=== PATIENT | female | born 1995 | race Caucasian/White ===

== ENCOUNTER 2019-01-03 07:17 | Day surgery (SDC) | payer BC, OTHER ==
[~2019-01-03] VITALS: Ht 175.3 cm; Wt 97.5 kg
[~2019-01-03 07:17] MED LIST: AMAN100 PO; BUDE6HFA INH; CRINONE1.125 GM TOP; HYDACE5 PO; RXERYTOPTH OP; TESTOSTERONE SL; Zithromax250 MG PO
[2019-01-03] MEDS ORDERED: ALBU90OI61 INH (07:52)
--- NOTE | 2019-01-03 08:25 | NUR ---
History, Chart, Medications and Allergies reviewed before start of procedure. Patient confirms NPO status and agrees with scheduled surgery. Patient reports completing Chlorhexadine shower X2 prior to admission to hospital. Patient States Post-Procedure ride home has been arranged with her significant other.
--- NOTE | 2019-01-03 10:24 | NUR ---
C/O 4/10 DULL PAIN TO UMBILICUS. STATES SHE DOES NOT NEED PAIN MEDICATION AT THIS TIME. ALSO C/O SORE THROAT. DENIES NAUSEA. ABDOMINAL BINDER PLACED.
--- NOTE | 2019-01-03 11:07 | NUR ---
Discharge instructions reviewed with patient. Patient verbalizes understanding. Copy given to patient to take home.
--- NOTE | 2019-01-03 11:12 | NUR ---
TOLERATED PO WATER AND CRAKCERS WITHOUT C/O.
--- NOTE | 2019-01-03 11:25 | NUR ---
1118- UP TO DRESS. GAIT STEADY. VSS. PATIENT STATES SHE FEELS READY TO GO HOME. 1124- TANSFERED OUT OF DEPARTMENT VIA [facility].
== END 2019-01-03 23:01 | disposition home or self-care (01) ==
LOC: ORSCMMR 07:17 → ORD 07:30 → ORSCMMR 08:45 → ORD 08:45 → ORSCMMR 23:01
PROVIDERS: Surgery
PROC: 0WQF0ZZ Repair Abdominal Wall, Open Approach (ICD-10-PCS; principal; 2019-01-03 08:45)
DX: K42.9 Umbilical hernia without obstruction or gangrene (principal); J45.909 Unspecified asthma, uncomplicated; F41.9 Anxiety disorder, unspecified; Z79.899 Other long term (current) drug therapy; E66.9 Obesity, unspecified; Z68.33 Body mass index [BMI] 33.0-33.9, adult
CPT/HCPCS: J0690; J1100; J2405; J3010; J7120

== ENCOUNTER → 2022-02-16 | Outpatient (CLI) | payer OTHER ==
[~2022-02-16] MED LIST changes: +ALBU90OI61 INH; +IBUP800 PO
[2022-02-17 10:56] LABS: Candida species (DNA Probe) Negative (NEGATIVE); G. vaginalis (DNA Probe) Positive (NEGATIVE); T. vaginalis (DNA Probe) Negative (NEGATIVE)
== END | disposition home or self-care (01) ==
LOC: LAB SHORT 14:01
PROVIDERS: Student in an Organized Health Care Education/Training Program
DX: N89.8 Other specified noninflammatory disorders of vagina (principal)
CPT/HCPCS: 87480; 87510; 87660

== ENCOUNTER → 2023-03-13 | Outpatient (CLI) | payer OTHER ==
[~2023-03-13] MED LIST changes: +ONDA4; +STIOLTO RESPIMAT4 G1 INH
[2023-03-14 11:00] LABS: Candida species (DNA Probe) Negative (NEGATIVE); G. vaginalis (DNA Probe) Negative (NEGATIVE); T. vaginalis (DNA Probe) Negative (NEGATIVE)
== END | disposition home or self-care (01) ==
LOC: LAB 11:37 → LAB SHORT 11:37
PROVIDERS: Student in an Organized Health Care Education/Training Program
DX: R30.0 Dysuria (principal)
CPT/HCPCS: 87077; 87086; 87186; 87480; 87510; 87660

== ENCOUNTER → 2023-07-23 | Outpatient (CLI) | payer OTHER | END | disposition home or self-care (01) | LOC: LAB 12:12 → LAB SHORT 12:12 | DX: R30.0 Dysuria (principal) | CPT/HCPCS: 87086 ==

== ENCOUNTER → 2023-08-29 | Outpatient (CLI) | payer OTHER | END | disposition home or self-care (01) | LOC: LAB SHORT 08:34 → LAB 08:34 | DX: R30.0 Dysuria (principal) | CPT/HCPCS: 87086 ==

== ENCOUNTER → 2024-01-01 | Outpatient (CLI) | payer SELFPAY ==
[2024-01-02 11:42] LABS: G. vaginalis (DNA Probe) Negative (NEGATIVE); T. vaginalis (DNA Probe) Negative (NEGATIVE)
[2024-01-02 11:43] LABS: Candida species (DNA Probe) Negative (NEGATIVE)
== END ==
LOC: LAB SHORT 13:32 → LAB 13:32
PROVIDERS: Student in an Organized Health Care Education/Training Program
DX: N89.8 Other specified noninflammatory disorders of vagina (principal)
CPT/HCPCS: 87480; 87510; 87660

== ENCOUNTER → 2024-01-07 | Outpatient (CLI) | payer SELFPAY | LOC: LAB 13:18 → LAB SHORT 13:18 | DX: R30.0 Dysuria (principal) | CPT/HCPCS: 87086 ==

== ENCOUNTER → 2024-05-08 | Outpatient (CLI) | payer OTHER ==
[2024-05-08 17:24] LABS: Source, Urine Clean Catch
[2024-05-08 19:37] LABS: Bilirubin, Urine Neg (Neg); Blood, Urine Neg (Neg); Glucose Qualitative, Urine Neg (Neg); Ketones, Urine 2+ (Neg); Leukocyte Esterase, Urine 3+ (Neg); Nitrite, Urine Neg (Neg); Protein, Urine 1+ (Neg); Urobilinogen, Urine NORM (Normal)
[2024-05-08 20:38] LABS: Appearance, Urine Hazy (Clear); Color, Urine Yellow (P-Yellow); Mucus Mod (0-Heavy)
[2024-05-08 20:39] LABS: Amorphous Mod (0-Heavy); Bacteria Many /hpf; Calcium Oxalate Crystals Many /hpf; Red Blood Cells, Urine 0-2 /hpf (0-2); Squamous Epithelial Cells Many /hpf (Few)
== END ==
LOC: LAB SHORT 17:14 → LAB 17:14
PROVIDERS: Nurse Practitioner Psychiatric/Mental Health
DX: R30.0 Dysuria (principal)
CPT/HCPCS: 81001; 87086

== ENCOUNTER 2024-12-05 10:34 | Day surgery (SDC) | payer BC, OTHER ==
[~2024-12-05] VITALS: Ht 170.2 cm; Wt 91.2 kg
[2024-12-05] MEDS ORDERED: ALBU90OI INH (11:32)
[2024-12-05] MEDS ORDERED: Lactated Ringer's 1,000 ML IV ONE (11:38)
[2024-12-05] MEDS ORDERED: Doxycycline Hyclate 200 MG in Dextrose 5% 500 ML IV ONE (12:05)
[2024-12-05] MEDS ORDERED: propofoL 20 ML IV ONE (12:22)
[2024-12-05] MEDS ORDERED: FentaNYL Citrate 50 MCG/ML 2 ML Injection ONE (12:22)
[2024-12-05] MEDS ORDERED: Midazolam HCl 1MG / ML 2ML Vial ONE (12:22)
[2024-12-05] MEDS ORDERED: Ondansetron HCl 2 MG / ML 2ML Vial ONE (13:11)
[2024-12-05] MEDS ORDERED: Dexamethasone Sod Phos 10 MG/ML 1ML VIAL ONE (13:11)
[2024-12-05] MEDS ORDERED: Methylergonovine Maleate 0.2MG / ML 1ML Amp ONE (13:32)
--- NOTE | 2024-12-05 13:53 | NUR ---
12/05/24 1353 Christa Novak PT RESTING COMFORTABLY W/ EYES CLOSED, RESPIRATIONS NORMAL & NON-LABORED. DENIES PAIN/NAUSEA. VSS, ON RA. NO VISIBLE SIGNS OF DISTRESS NOTED.
[2024-12-05] MEDS ORDERED: Doxycycline Hyclate 100 MG TAB PO ONE (14:00)
--- NOTE | 2024-12-05 14:09 | NUR ---
12/05/24 1409 Christa Novak PT RESTING QUIETLY UPON ARRIVAL TO SDU. PT CONTINUES TO DENY PAIN/NAUSEA. VITALS REMAIN STABLE, ON RA. PERIPAD IN PLACE W/ NO DRAINAGE NOTED. NO VISIBLE SIGNS OF DISTRESS NOTED.
[2024-12-05 14:10] VITALS: BP 114/55
== END 2024-12-05 15:05 | disposition home or self-care (01) ==
LOC: ORSCSDS 10:34
PROVIDERS: Obstetrics & Gynecology
PROC: 10D17ZZ Extraction of Products of Conception, Retained, Via Natural or Artificial Opening (ICD-10-PCS; principal; 2024-12-05 12:30)
DX: O03.4 Incomplete spontaneous abortion without complication (principal); J45.909 Unspecified asthma, uncomplicated; Z79.899 Other long term (current) drug therapy
CPT/HCPCS: 76817; 76998; 86850; 86900; 86901; 88305; A9270; J1100; J2210; J2250; J2405; J2704; J3010; J7060

== ENCOUNTER → 2025-02-12 | Outpatient (CLI) | payer BC, OTHER ==
[~2025-02-12] MED LIST changes: +ALBU90OI INH
[2025-02-18 09:57] LABS: HPV HIGH RISK BY TMA Not Detected; HPV SOURCE Cervical
== END ==
LOC: LAB 16:54 → LAB SHORT 16:54
PROVIDERS: Student in an Organized Health Care Education/Training Program
DX: Z12.4 Encounter for screening for malignant neoplasm of cervix (principal)
CPT/HCPCS: 87624; G0123